=== PATIENT | female | born 1975 | race Two or more races ===

== ENCOUNTER → 2024-08-03 | Outpatient (CLI) | payer BC, SELFPAY ==
[2024-08-03 09:00] LABS: Vitamin B12 694 pg/mL (211-911)
[2024-08-03 09:07] LABS: Alanine Aminotransferase 19 U/L (10-49); Albumin, Serum 4.5 gm/dL (3.5-5.0); Albumin/Globulin Ratio 1.8 (1.2-2.2); Alkaline Phosphatase 109 U/L (46-116); Anion Gap 7 (7-16); Aspartate Amino Transferase 27 U/L (0-34); BUN/Creatinine Ratio 17 Ratio (12-20); Bilirubin,Total 0.6 mg/dL (0.3-1.2); Blood Urea Nitrogen 22 mg/dL (9-23); Calcium 10.2 mg/dL (8.3-10.6); Calcium (Corrected) 10.2 mg/dL (8.5-10.1); Carbon Dioxide 26.2 mMol/L (20.0-31.0); Chloride 107 mMol/L (98-107); Creatinine (Component) 1.3 mg/dL (0.6-1.3); Free T3 2.7 pg/mL (2.3-4.2); Free T4 (Free Thyroxine) 1.36 ng/dL (0.89-1.76); Globulin 2.5 gm/dL (2.3-3.5); Glucose 96 mg/dL (74-106); Osmolality,Calculated 282 (275-295); Potassium 4.3 mMol/L (3.4-5.1); Sodium 140 mMol/L (136-145); Thyroid Stimulating Hormone 0.45 uIU/mL (0.55-4.78); eGFR 50 See Note
[2024-08-09 06:24] LABS: ACTH, Plasma* 36 pg/mL (6-50)
[2024-08-15 06:30] LABS: Cortisol,total,LC/MS/MS* 18.2 mcg/dL; Thyroglobulin Antibodies* <1 IU/mL (< OR = 1); Thyroid Peroxidase Antibodies* 222 IU/mL (<9)
== END | disposition home or self-care (01) ==
LOC: COPL 07:51
PROVIDERS: PCP Family Medicine; Referring Provider Internal Medicine Endocrinology, Diabetes & Metabolism; Visit Provider Internal Medicine Endocrinology, Diabetes & Metabolism
DX: E03.8 Other specified hypothyroidism (principal); E06.3 Autoimmune thyroiditis; M31.30 Wegener's granulomatosis without renal involvement; I77.6 Arteritis, unspecified; D18.03 Hemangioma of intra-abdominal structures; E53.8 Deficiency of other specified B group vitamins; E55.9 Vitamin D deficiency, unspecified
CPT/HCPCS: 36415; 80053; 82024; 82533; 82607; 84439; 84443; 84481; 86376; 86800

== ENCOUNTER → 2024-08-24 | Outpatient (CLI) | payer BC, SELFPAY ==
[2024-08-24 08:13] LABS: Collection Type, Urine Clean Catch; Squamous Epithelial Cell,Urine 0 /hpf (0-5)
[2024-08-24 08:28] LABS: Basophils % (Auto) 1 % (0-2.5); Eosinophils % (Auto) 1 % (0-10); Hematocrit 37.5 % (36.0-46.0); Hemoglobin 12.8 g/dL (12.0-16.0); Immature Granulocytes % (Auto) 0 % (0-0); Immature Granulocytes Auto 0.01 Thou/mm3 (0.00-0.00); Lymphocytes # (Auto) 0.8 Thou/mm3 (1.0-4.8); Lymphocytes % (Auto) 21 % (10-50); Mean Corpuscular HGB Conc 34.1 g/dl (31.0-37.0); Mean Corpuscular Hemoglobin 34.2 pg (25.0-35.0); Mean Corpuscular Volume 100 fL (80-100); Monocytes # (Auto) 0.3 Thou/mm3 (0.0-0.8); Monocytes % (Auto) 7 % (0-12); Neutrophils # (Auto) 2.8 Thou/mm3 (1.8-7.7); Neutrophils % (Auto) 70 % (37-80); Nucleated Red Blood Cell % 0 /100 WBC (0); Platelet Count 273 Thou/mm3 (140-440); RDW Standard Deviation 59.7 fL (36.4-46.3); Red Blood Count 3.74 Miln/mm3 (4.00-5.20); White Blood Count 3.9 Thou/mm3 (3.6-11.0)
[2024-08-24 08:32] LABS: Bilirubin,Urine Negative (Negative); Blood,Urine Negative (Negative); Clarity,Urine Clear (Clear/Hazy); Color,Urine Lt-Yellow (Lt Yel-Yel); Glucose, Urine Negative (Negative); Ketones,Urine Negative (Negative); Leukocyte Esterase,Urine Negative (Negative); Nitrite,Urine Negative (Negative); PH,Urine 6.5 (5.0-7.0); Protein,Urine 1+ (Neg - Trace); RBC,Urine 3 /hpf (0-3); Specific Gravity,Urine 1.013 (1.001-1.035); Urobilinogen,Urine Negative mg/dL (0.0-1.0); WBC,Urine 1 /hpf (0-5)
[2024-08-24 09:02] LABS: Ferritin 48 ng/mL (7.3-270.7)
[2024-08-24 09:06] LABS: Sed Rate (ESR) 15 mm/hr (0-20)
[2024-08-24 10:06] LABS: Alanine Aminotransferase 21 U/L (10-49); Albumin, Serum 4.4 gm/dL (3.5-5.0); Alkaline Phosphatase 108 U/L (46-116); Anion Gap 6 (7-16); Aspartate Amino Transferase 26 U/L (0-34); BUN/Creatinine Ratio 18 Ratio (12-20); Blood Urea Nitrogen 25 mg/dL (9-23); Calcium 10.4 mg/dL (8.3-10.6); Calcium (Corrected) 10.4 mg/dL (8.5-10.1); Carbon Dioxide 27.5 mMol/L (20.0-31.0); Chloride 108 mMol/L (98-107); Creatinine (Component) 1.4 mg/dL (0.6-1.3); Globulin 2.2 gm/dL (2.3-3.5); Glucose 91 mg/dL (74-106); Osmolality,Calculated 285 (275-295); Sodium 141 mMol/L (136-145); Total Protein 6.6 gm/dL (5.7-8.2); eGFR 46 See Note
[2024-08-24 16:09] LABS: Glucose Estimated Average 97 mg/dL (80-131)
[2024-08-24 16:32] LABS: Bilirubin,Total 0.5 mg/dL (0.3-1.2); C-Reactive Protein 0.4 mg/dL (0.0-0.9); Cholesterol 204 mg/dL (132-200); HDL Cholesterol 69 mg/dL (40-60); LDL Cholesterol,Calculated 114 mg/dL (0-130); Triglycerides 107 mg/dL (30-150)
[2024-09-07 06:44] LABS: ANCA Screen POSITIVE (NEGATIVE); Complement Component C3* 168 mg/dL (83-193); Complement Component C4c* 29 mg/dL (15-57); Myeloperoxidase Ab 5.4 AI (<1.0); Proteinase-3 Ab <1.0 AI (<1.0)
== END | disposition home or self-care (01) ==
PROVIDERS: PCP Family Medicine; Referring Provider Internal Medicine; Visit Provider Internal Medicine
DX: I12.9 Hypertensive chronic kidney disease with stage 1 through stage 4 chronic kidney disease, or unspecified chronic kidney disease (principal); N18.31 Chronic kidney disease, stage 3a; N39.0 Urinary tract infection, site not specified; E03.9 Hypothyroidism, unspecified; E21.3 Hyperparathyroidism, unspecified; E55.9 Vitamin D deficiency, unspecified; E78.00 Pure hypercholesterolemia, unspecified; K21.9 Gastro-esophageal reflux disease without esophagitis; M31.30 Wegener's granulomatosis without renal involvement; R21 Rash and other nonspecific skin eruption; R94.5 Abnormal results of liver function studies; Z79.899 Other long term (current) drug therapy; Z86.11 Personal history of tuberculosis
CPT/HCPCS: 36415; 80053; 80061; 81001; 82728; 83036; 84443; 85025; 85652; 86021; 86036; 86037; 86140; 86160

== ENCOUNTER → 2024-09-03 | Outpatient (CLI) | payer BC, SELFPAY ==
[2024-09-03 08:28] LABS: Basophils % (Auto) 1 % (0-2.5); Eosinophils # (Auto) 0.1 Thou/mm3 (0.0-0.5); Eosinophils % (Auto) 1 % (0-10); Hematocrit 37.6 % (36.0-46.0); Hemoglobin 12.7 g/dL (12.0-16.0); Immature Granulocytes % (Auto) 0 % (0-0); Immature Granulocytes Auto 0.01 Thou/mm3 (0.00-0.00); Lymphocytes % (Auto) 24 % (10-50); Mean Corpuscular HGB Conc 33.8 g/dl (31.0-37.0); Mean Corpuscular Hemoglobin 34.2 pg (25.0-35.0); Mean Corpuscular Volume 101 fL (80-100); Monocytes # (Auto) 0.4 Thou/mm3 (0.0-0.8); Monocytes % (Auto) 9 % (0-12); Neutrophils # (Auto) 2.7 Thou/mm3 (1.8-7.7); Neutrophils % (Auto) 64 % (37-80); Nucleated Red Blood Cell % 0 /100 WBC (0); Platelet Count 253 Thou/mm3 (140-440); RDW Standard Deviation 58.4 fL (36.4-46.3); Red Blood Count 3.71 Miln/mm3 (4.00-5.20); White Blood Count 4.2 Thou/mm3 (3.6-11.0)
[2024-09-03 08:43] LABS: Alanine Aminotransferase 17 U/L (10-49); Albumin, Serum 4.4 gm/dL (3.5-5.0); Albumin/Globulin Ratio 1.5 (1.2-2.2); Alkaline Phosphatase 107 U/L (46-116); Anion Gap 5 (7-16); Aspartate Amino Transferase 29 U/L (0-34); BUN/Creatinine Ratio 17 Ratio (12-20); Bilirubin,Total 0.5 mg/dL (0.3-1.2); Blood Urea Nitrogen 26 mg/dL (9-23); Calcium 10.4 mg/dL (8.3-10.6); Calcium (Corrected) 10.4 mg/dL (8.5-10.1); Carbon Dioxide 29.6 mMol/L (20.0-31.0); Chloride 106 mMol/L (98-107); Creatinine (Component) 1.5 mg/dL (0.6-1.3); Glucose 97 mg/dL (74-106); Osmolality,Calculated 285 (275-295); Potassium 5.2 mMol/L (3.4-5.1); Sodium 141 mMol/L (136-145); Total Protein 7.4 gm/dL (5.7-8.2); eGFR 42 See Note
== END | disposition home or self-care (01) ==
PROVIDERS: PCP Family Medicine; Referring Provider Nurse Practitioner; Visit Provider Nurse Practitioner
DX: D18.03 Hemangioma of intra-abdominal structures (principal)
CPT/HCPCS: 36415; 80053; 85025

== ENCOUNTER → 2024-11-16 | Outpatient (CLI) | payer BC, SELFPAY ==
[2024-11-16 09:50] LABS: Collection Type, Urine Clean Catch; Squamous Epithelial Cell,Urine 0 /hpf (0-5)
[2024-11-16 10:17] LABS: Basophils % (Auto) 1 % (0-2.5); Eosinophils % (Auto) 1 % (0-10); Hematocrit 37.5 % (36.0-46.0); Immature Granulocytes % (Auto) 0 % (0-0); Immature Granulocytes Auto 0.01 Thou/mm3 (0.00-0.00); Lymphocytes % (Auto) 26 % (10-50); Mean Corpuscular HGB Conc 34.7 g/dl (31.0-37.0); Mean Corpuscular Hemoglobin 34.4 pg (25.0-35.0); Mean Corpuscular Volume 99 fL (80-100); Monocytes # (Auto) 0.3 Thou/mm3 (0.0-0.8); Monocytes % (Auto) 8 % (0-12); Neutrophils # (Auto) 2.5 Thou/mm3 (1.8-7.7); Neutrophils % (Auto) 65 % (37-80); Nucleated Red Blood Cell % 0 /100 WBC (0); Platelet Count 246 Thou/mm3 (140-440); RDW Standard Deviation 49.7 fL (36.4-46.3); Red Blood Count 3.78 Miln/mm3 (4.00-5.20); White Blood Count 3.9 Thou/mm3 (3.6-11.0)
[2024-11-16 10:30] LABS: Bilirubin,Urine Negative (Negative); Blood,Urine Negative (Negative); Clarity,Urine Clear (Clear/Hazy); Color,Urine Lt-Yellow (Lt Yel-Yel); Glucose, Urine Negative (Negative); Ketones,Urine Negative (Negative); Leukocyte Esterase,Urine Negative (Negative); Nitrite,Urine Negative (Negative); Protein,Urine 1+ (Neg - Trace); RBC,Urine < 1 /hpf (0-3); Specific Gravity,Urine 1.011 (1.001-1.035); Urobilinogen,Urine Negative mg/dL (0.0-1.0); WBC,Urine < 1 /hpf (0-5)
[2024-11-16 10:35] LABS: Creatinine,Random Urine 85 mg/dL (30-125); Protein Total, Random Urine 60 mg/dL (1-14)
[2024-11-16 10:35] LABS: Alanine Aminotransferase 15 U/L (10-49); Albumin, Serum 4.2 gm/dL (3.5-5.0); Albumin/Globulin Ratio 1.8 (1.2-2.2); Alkaline Phosphatase 99 U/L (46-116); Anion Gap 7 (7-16); Aspartate Amino Transferase 26 U/L (0-34); BUN/Creatinine Ratio 18 Ratio (12-20); Bilirubin,Total 0.5 mg/dL (0.3-1.2); Blood Urea Nitrogen 25 mg/dL (9-23); C-Reactive Protein 0.6 mg/dL (0.0-0.9); Calcium 10.2 mg/dL (8.3-10.6); Calcium (Corrected) 10.2 mg/dL (8.5-10.1); Carbon Dioxide 28.6 mMol/L (20.0-31.0); Chloride 107 mMol/L (98-107); Creatinine (Component) 1.4 mg/dL (0.6-1.3); Globulin 2.3 gm/dL (2.3-3.5); Glucose 90 mg/dL (74-106); Osmolality,Calculated 289 (275-295); Potassium 4.9 mMol/L (3.4-5.1); Sodium 143 mMol/L (136-145); Total Protein 6.5 gm/dL (5.7-8.2); eGFR 46 See Note
[2024-11-16 11:21] LABS: Sed Rate (ESR) 9 mm/hr (0-30)
[2024-11-26 06:57] LABS: Myeloperoxidase Ab 5.3 AI (<1.0); Proteinase-3 Ab <1.0 AI (<1.0)
== END | disposition home or self-care (01) ==
LOC: COPL 09:11
PROVIDERS: PCP Family Medicine; Referring Provider Internal Medicine; Visit Provider Internal Medicine
DX: E03.9 Hypothyroidism, unspecified (principal); E21.3 Hyperparathyroidism, unspecified; E55.9 Vitamin D deficiency, unspecified; E78.00 Pure hypercholesterolemia, unspecified; K21.9 Gastro-esophageal reflux disease without esophagitis; M31.30 Wegener's granulomatosis without renal involvement; I12.9 Hypertensive chronic kidney disease with stage 1 through stage 4 chronic kidney disease, or unspecified chronic kidney disease; N18.31 Chronic kidney disease, stage 3a; R21 Rash and other nonspecific skin eruption; R94.5 Abnormal results of liver function studies; Z79.899 Other long term (current) drug therapy; Z86.11 Personal history of tuberculosis
CPT/HCPCS: 36415; 80053; 81001; 82570; 84156; 85025; 85652; 86021; 86036; 86140; 87086

== ENCOUNTER 2025-02-06 07:55 | Day surgery (SDC) | payer BC, SELFPAY ==
[2025-02-05 13:44] VITALS: BMI 33.6
[2025-02-06] VITALS (10 sets, daily range): BP systolic 110–131; BP diastolic 76–90; PULSE 57–76; RESP 12–15; TEMP 36.6–36.7; O2SAT 97–100; BMI 33.6
[2025-02-06] MEDS: LIDOCAINE JELLY 2% (Urojet) 10 ML TUBE TOP (10:00)
[2025-02-06] MEDS: SODIUM CHLORIDE 0.9% 500 ML 500 ML 20 ML IV (10:00)
[2025-02-06] MEDS: DiphenhydrAMINE INJ 50 MG/ML VIAL 25 MG IV (10:06)
[2025-02-06] MEDS: MIDAZOLAM INJ 1 MG/ML VIAL 2 ML (ASD USE ONLY) 2 MG IV (10:06)
[2025-02-06] MEDS: fentaNYL CIT INJ 50 mCg/ML AMP 2ML (ASD USE ONLY) IV (10:06)
--- NOTE | 2025-02-06 11:18 | SUR.PHASEII ---
1102: Pt received in [facility]. Report from [facility]. Pt sleepy. Easily aroused. Resp even, unlabored. VS stable. Denies pain. 1055: Pt more awake, alert. VS stable. Denies pain. Sitting up tolerating po fluids with no difficulty swallowing and no n/v. 1106: Pt fully awake, oriented x3. Pt assisted to restroom. Ambulation steady. Pt and stated understanding of discharge instructions. Pt discharged from [facility] in stable condition.
== END 2025-02-06 11:06 | disposition home or self-care (01) ==
PROVIDERS: PCP Family Medicine; Referring Provider Specialist; Visit Provider Specialist
PROC: 0DBE8ZX Excision of Large Intestine, Via Natural or Artificial Opening Endoscopic, Diagnostic (ICD-10-PCS; CPT 45380; principal; 2025-02-06 09:15)
DX: Z12.11 Encounter for screening for malignant neoplasm of colon (principal); D12.5 Benign neoplasm of sigmoid colon; K64.9 Unspecified hemorrhoids; K57.30 Diverticulosis of large intestine without perforation or abscess without bleeding
CPT/HCPCS: 45385; 81025; J1200; J2250; J3010; J7040

== ENCOUNTER → 2025-02-22 | Outpatient (CLI) | payer BC, SELFPAY ==
[2025-02-22 08:06] LABS: Collection Type, Urine Clean Catch
[2025-02-22 08:39] LABS: Bilirubin,Urine Negative (Negative); Blood,Urine Negative (Negative); Clarity,Urine Clear (Clear/Hazy); Color,Urine Lt-Yellow (Lt Yel-Yel); Culture Indicated,Urine Not Indicated; Glucose, Urine Negative (Negative); Ketones,Urine Negative (Negative); Leukocyte Esterase,Urine Negative (Negative); Nitrite,Urine Negative (Negative); PH,Urine 7.5 (5.0-7.0); Protein,Urine 2+ (Neg - Trace); RBC,Urine 3 /hpf (0-3); Specific Gravity,Urine 1.018 (1.001-1.035); Squamous Epithelial Cell,Urine < 1 /hpf (0-5); Urobilinogen,Urine Negative mg/dL (0.0-1.0); WBC,Urine 1 /hpf (0-5)
[2025-02-22 08:42] LABS: Basophils % (Auto) 1 % (0-2.5); Eosinophils # (Auto) 0.1 Thou/mm3 (0.0-0.5); Eosinophils % (Auto) 1 % (0-10); Hematocrit 35.9 % (36.0-46.0); Hemoglobin 12.6 g/dL (12.0-16.0); Immature Granulocytes % (Auto) 0 % (0-0); Immature Granulocytes Auto 0.01 Thou/mm3 (0.00-0.00); Lymphocytes # (Auto) 0.9 Thou/mm3 (1.0-4.8); Lymphocytes % (Auto) 22 % (10-50); Mean Corpuscular HGB Conc 35.1 g/dl (31.0-37.0); Mean Corpuscular Volume 100 fL (80-100); Monocytes # (Auto) 0.3 Thou/mm3 (0.0-0.8); Monocytes % (Auto) 8 % (0-12); Neutrophils # (Auto) 2.9 Thou/mm3 (1.8-7.7); Neutrophils % (Auto) 68 % (37-80); Nucleated Red Blood Cell % 0 /100 WBC (0); Platelet Count 253 Thou/mm3 (140-440); RDW Standard Deviation 50.3 fL (36.4-46.3); White Blood Count 4.2 Thou/mm3 (3.6-11.0)
[2025-02-22 08:50] LABS: Parathyroid Hormone Intact 85.7 pg/ml (18.5-88.0)
[2025-02-22 09:00] LABS: Alanine Aminotransferase 11 U/L (10-49); Albumin, Serum 4.2 gm/dL (3.5-5.0); Albumin/Globulin Ratio 1.6 (1.2-2.2); Alkaline Phosphatase 100 U/L (46-116); Anion Gap 10 (7-16); Aspartate Amino Transferase 24 U/L (0-34); BUN/Creatinine Ratio 14 Ratio (12-20); Bilirubin,Total 0.7 mg/dL (0.3-1.2); Blood Urea Nitrogen 21 mg/dL (9-23); C-Reactive Protein < 0.5 mg/dL (0.0-0.9); Calcium 9.4 mg/dL (8.3-10.6); Calcium (Corrected) 9.4 mg/dL (8.5-10.1); Carbon Dioxide 28.3 mMol/L (20.0-31.0); Chloride 104 mMol/L (98-107); Creatinine (Component) 1.5 mg/dL (0.6-1.3); Free T4 (Free Thyroxine) 1.41 ng/dL (0.89-1.76); Globulin 2.6 gm/dL (2.3-3.5); Glucose 94 mg/dL (74-106); Osmolality,Calculated 286 (275-295); Phosphorous 3.1 mg/dL (2.4-5.1); Potassium 4.7 mMol/L (3.4-5.1); Sodium 142 mMol/L (136-145); Thyroid Stimulating Hormone 0.48 uIU/mL (0.55-4.78); Total Protein 6.8 gm/dL (5.7-8.2); Vitamin D 25 Hydroxy Total 32.9 ng/mL (7.3-40.2); eGFR 42 See Note
[2025-02-22 09:03] LABS: Creatinine,Random Urine 152 mg/dL (30-125); Protein Total, Random Urine 100 mg/dL (1-14)
[2025-02-22 09:33] LABS: Sed Rate (ESR) 30 mm/hr (0-30)
[2025-03-05 06:32] LABS: ANCA Screen POSITIVE (NEGATIVE); Complement Component C3* 155 mg/dL (83-193); Complement Component C4c* 30 mg/dL (15-57); Myeloperoxidase Ab 4.4 AI (<1.0); P-ANCA Titer 1:40 titer (<1:20); Proteinase-3 Ab <1.0 AI (<1.0)
== END | disposition home or self-care (01) ==
PROVIDERS: PCP Family Medicine; Referring Provider Internal Medicine Endocrinology, Diabetes & Metabolism; Visit Provider Internal Medicine
DX: E21.3 Hyperparathyroidism, unspecified (principal); E06.3 Autoimmune thyroiditis; I77.6 Arteritis, unspecified; M31.30 Wegener's granulomatosis without renal involvement; I12.9 Hypertensive chronic kidney disease with stage 1 through stage 4 chronic kidney disease, or unspecified chronic kidney disease; N18.31 Chronic kidney disease, stage 3a; Z79.899 Other long term (current) drug therapy
CPT/HCPCS: 36415; 80053; 81001; 82306; 82570; 83970; 84100; 84156; 84439; 84443; 85025; 85652; 86021; 86036; 86140; 86160

== ENCOUNTER → 2025-07-26 | Outpatient (CLI) | payer BC, SELFPAY ==
--- NOTE | 2025-07-26 09:45 | XR_ITS ---
EXAMINATION: PA lateral chest 2 views TECHNIQUE: Upright PA lateral chest 2 views Date and time: July 29, 2025, 10:11 a.m., comparison March 30, 2024 INDICATIONS: TB screening. FINDINGS: Normal heart size Lungs are clear. Moderate osteopenia IMPRESSION: No active disease No radiographic findings of active tuberculosis
[2025-07-26 10:34] LABS: Collection Type, Urine Clean Catch; Squamous Epithelial Cell,Urine 0 /hpf (0-5)
[2025-07-26 10:54] LABS: Basophils # (Auto) 0.0 Thou/mm3 (0.0-0.2); Basophils % (Auto) 1 % (0-2.5); Eosinophils # (Auto) 0.0 Thou/mm3 (0.0-0.5); Eosinophils % (Auto) 1 % (0-10); Hematocrit 37.5 % (36.0-46.0); Hemoglobin 12.7 g/dL (12.0-16.0); Immature Granulocytes Auto 0.01 Thou/mm3 (0.00-0.00); Lymphocytes # (Auto) 1.0 Thou/mm3 (1.0-4.8); Lymphocytes % (Auto) 27 % (10-50); Mean Corpuscular HGB Conc 33.9 g/dl (31.0-37.0); Mean Corpuscular Hemoglobin 34.7 pg (25.0-35.0); Mean Corpuscular Volume 103 fL (80-100); Monocytes # (Auto) 0.3 Thou/mm3 (0.0-0.8); Monocytes % (Auto) 8 % (0-12); Neutrophils # (Auto) 2.4 Thou/mm3 (1.8-7.7); Neutrophils % (Auto) 64 % (37-80); Nucleated Red Blood Cell # 0.00 Thou/mm3 (0.00-0.00); Nucleated Red Blood Cell % 0 /100 WBC (0); Platelet Count 280 Thou/mm3 (140-440); RDW Standard Deviation 54.1 fL (36.4-46.3); Red Blood Count 3.66 Miln/mm3 (4.00-5.20); White Blood Count 3.8 Thou/mm3 (3.6-11.0)
[2025-07-26 11:04] LABS: Bilirubin,Urine Negative (Negative); Blood,Urine Negative (Negative); Clarity,Urine Clear (Clear/Hazy); Color,Urine Yellow (Lt Yel-Yel); Glucose, Urine Negative (Negative); Hyaline Casts,Urine < 1 /hpf (0-1); Ketones,Urine Negative (Negative); Leukocyte Esterase,Urine Negative (Negative); Nitrite,Urine Negative (Negative); PH,Urine 6.0 (5.0-7.0); Protein,Urine 1+ (Neg - Trace); RBC,Urine 1 /hpf (0-3); Specific Gravity,Urine 1.018 (1.001-1.035); Urobilinogen,Urine Negative mg/dL (0.0-1.0); WBC,Urine < 1 /hpf (0-5)
[2025-07-26 11:09] LABS: Creatinine,Random Urine 151 mg/dL (30-125); Protein Total, Random Urine 71 mg/dL (1-14)
[2025-07-26 11:15] LABS: Parathyroid Hormone Intact 105.2 pg/ml (18.5-88.0); Sed Rate (ESR) 16 mm/hr (0-30)
[2025-07-26 11:18] LABS: Alanine Aminotransferase 14 U/L (10-49); Albumin, Serum 4.8 gm/dL (3.5-5.0); Albumin/Globulin Ratio 2.3 (1.2-2.2); Alkaline Phosphatase 100 U/L (46-116); Anion Gap 10 (7-16); Aspartate Amino Transferase 27 U/L (0-34); BUN/Creatinine Ratio 14 Ratio (12-20); Bilirubin,Total 0.7 mg/dL (0.3-1.2); Blood Urea Nitrogen 19 mg/dL (9-23); C-Reactive Protein < 0.5 mg/dL (0.0-0.9); Calcium 10.0 mg/dL (8.3-10.6); Calcium (Corrected) 10.0 mg/dL (8.5-10.1); Carbon Dioxide 26.6 mMol/L (20.0-31.0); Cardiac Risk Estimate 3.1 RATIO (3.7-5.6); Chloride 104 mMol/L (98-107); Cholesterol 188 mg/dL (132-200); Creatinine (Component) 1.4 mg/dL (0.6-1.3); Globulin 2.1 gm/dL (2.3-3.5); Glucose 89 mg/dL (74-106); HDL Cholesterol 61 mg/dL (40-60); LDL Cholesterol,Calculated 113 mg/dL (0-130); Osmolality,Calculated 282 (275-295); Potassium 4.7 mMol/L (3.4-5.1); Sodium 141 mMol/L (136-145); Total Protein 6.9 gm/dL (5.7-8.2); Triglycerides 69 mg/dL (30-150); eGFR 46 See Note
[2025-08-02 06:33] LABS: ANCA Screen POSITIVE (NEGATIVE); Atypical P-ANCA Titer 1:80 titer (<1:20); Complement Component C3* 157 mg/dL (83-193); Complement Component C4c* 32 mg/dL (15-57); Myeloperoxidase Ab 4.9 AI (<1.0); Proteinase-3 Ab <1.0 AI (<1.0)
== END | disposition home or self-care (01) ==
LOC: CDIM 09:29 → COPL 10:17 → CDIM 08-14 07:37 → COPL 08-14 08:04
PROVIDERS: PCP Family Medicine; Referring Provider Internal Medicine; Visit Provider Radiology Diagnostic Radiology
DX: Z11.1 Encounter for screening for respiratory tuberculosis (principal); M31.30 Wegener's granulomatosis without renal involvement; I12.9 Hypertensive chronic kidney disease with stage 1 through stage 4 chronic kidney disease, or unspecified chronic kidney disease; N18.31 Chronic kidney disease, stage 3a; Z79.899 Other long term (current) drug therapy; E78.5 Hyperlipidemia, unspecified
CPT/HCPCS: 36415; 71046; 80053; 80061; 81001; 82570; 83970; 84156; 85025; 85652; 86021; 86036; 86140; 86160; 87086

== ENCOUNTER → 2025-07-31 | Outpatient (CLI) | payer BC, SELFPAY ==
[2025-07-31 10:56] LABS: Quantiferon-TB* See Sep Rpt
== END | disposition home or self-care (01) ==
LOC: COPL 10:37
PROVIDERS: PCP Family Medicine; Referring Provider Family Medicine; Visit Provider Family Medicine
DX: Z11.1 Encounter for screening for respiratory tuberculosis (principal)
CPT/HCPCS: 86480

== ENCOUNTER → 2025-08-22 | Outpatient (CLI) | payer BC, SELFPAY ==
--- NOTE | 2025-08-22 14:28 | XR_ITS ---
EXAMINATION: Cervical spine, 5 views Technique: Cervical spine AP, AP odontoid, lateral, bilateral obliques, 5 views Exam date and time: August 22, 2025, 1442 hours INDICATIONS: Neck pain beginning 2 years ago. FINDINGS: Reversal normal cervical lordosis Moderate degenerative disc disease at C5-C6 No cervical fracture No significant neuroforaminal stenosis IMPRESSION: Moderate degenerative disc disease C5-C6
== END | disposition home or self-care (01) ==
LOC: CDIM 14:02
PROVIDERS: PCP Family Medicine
DX: M50.322 Other cervical disc degeneration at C5-C6 level (principal)
CPT/HCPCS: 72050